=== PATIENT | female | born 1955 | race Caucasian/White ===

== ENCOUNTER 2024-04-06 04:38 | Inpatient (IN) | payer MEDICARE ==
[~2024-04-06] VITALS: Ht 170.2 cm; Wt 96.9 kg
[2024-04-06] VITALS (7 sets, daily range): BP systolic 149–190; BP diastolic 89–99; PULSE 78–85; RESP 17–19; TEMP 97.7–98.2; O2SAT 97
[2024-04-06 05:39] LABS: BASOPHILS # (AUTO) 0.1 (0.0-0.1); BASOPHILS % 0.5 % (0.0-1.0); EOSINOPHILS # (AUTO) 0.1 (0.0-0.4); EOSINOPHILS % 0.5 % (0.0-6.0); HEMATOCRIT 35.5 % (34.2-44.1); HEMOGLOBIN 12.6 g/dL (12.0-16.0); LYMPHOCYTES % 20.8 % (18.0-39.1); MEAN CORPUSCULAR HEMOGLOBIN 32.6 pg (28-32); MEAN CORPUSCULAR HGB CONC 35.5 g/dL (31-35); MEAN CORPUSCULAR VOLUME 91.7 fL (81-99); MONOCYTES # (AUTO) 0.7 (0.2-0.8); MONOCYTES % 7.1 % (4.4-11.3); NEUTROPHILS # (AUTO) 6.6 (2.1-6.9); NEUTROPHILS % 70.4 % (38.7-80.0); PLATELET COUNT 348 x10e3/uL (140-360); RED BLOOD COUNT 3.87 x10e6/uL (3.6-5.1); RED CELL DISTRIBUTION WIDTH 12.4 % (11.7-14.4); WHITE BLOOD COUNT 9.38 x10e3/uL (4.8-10.8)
[2024-04-06 05:59] LABS: ALBUMIN 3.4 g/dL (3.5-5.0); ALBUMIN/GLOBULIN RATIO 1.1 (0.8-2.0); ANION GAP 17.6 mmol/L (8-16); BILIRUBIN,TOTAL 1.7 mg/dL (0.2-1.2); CREATININE, SERUM 0.75 mg/dL (0.57-1.11); TOTAL PROTEIN 6.5 g/dL (6.5-8.1)
[2024-04-06 06:02] LABS: POTASSIUM 2.6 mmol/L (3.5-5.1)
[2024-04-06 06:05] LABS: TROPONIN I 0.014 ng/mL (0-0.300)
[2024-04-06] MEDS: ONDANSETRON HCL INJ 2MG/ML 2ML 2 MG/ML VIAL IV PRN (06:50)
[2024-04-06] MEDS: SODIUM CHLORIDE 0.9% 1000ML 1,000 ML IV STA (06:50)
[2024-04-06] MEDS: Morphine 4mg INJECTION 4 MG/ML INJ IV PRN (06:50)
[2024-04-06] MEDS: POTASSIUM CHLORIDE 20 MEQ TAB CR PO STA (06:50)
[2024-04-06] MEDS: SODIUM CHLORIDE 0.9% 1000ML 1,000 ML IV SCH (07:48)
[2024-04-06 08:26] LABS: AMPHETAMINES SCREEN,URINE NEGATIVE (NEGATIVE); BENZODIAZEPINES SCREEN,URINE NEGATIVE (NEGATIVE); CANNABINOIDS SCREEN,URINE NEGATIVE (NEGATIVE); METHADONE SCREEN, URINE NEGATIVE (NEGATIVE); OPIATES SCREEN,URINE POSITIVE (NEGATIVE); PHENCYCLIDINE SCREEN,URINE NEGATIVE (NEGATIVE)
[2024-04-06 09:54] LABS: BILIRUBIN,URINE NEGATIVE (NEGATIVE); CLARITY,URINE CLEAR (CLEAR); COLOR,URINE YELLOW (YELLOW); GLUCOSE, URINE NEGATIVE (NEGATIVE); KETONES,URINE NEGATIVE (NEGATIVE); LEUKOCYTE ESTERASE ,URINE NEGATIVE (NEGATIVE); NITRITE,URINE NEGATIVE (NEGATIVE); PH,URINE 7 (5 - 7); PROTEIN,URINE DIPSTICK NEGATIVE (NEGATIVE); URINE UROBILINOGEN 0.2 mg/dL (0.2 - 1)
[2024-04-06 10:42] LABS: BACTERIA,URINE FEW /HPF; EPITHELIAL CELLS,URINE FEW /LPF; RBC,URINE 0-5 /HPF (0-5); WBC,URINE (MAN) 0-5 /HPF (0-5)
[2024-04-06] MEDS ORDERED: LISINOPRIL10 MG PO (13:20)
[2024-04-06] MEDS ORDERED: BUPROPION XL150 MG PO (13:20)
[2024-04-06] MEDS ORDERED: TRAZODONE HCL50 MG PO (13:20)
[2024-04-06] MEDS ORDERED: EFFEXOR XR150 MG PO (13:20)
[2024-04-06] MEDS: LISINOPRIL 20 MG TAB PO SCH (13:58)
[2024-04-06] MEDS: POTASSIUM CHLORIDE 10MEQ EA PO ONE (13:59)
[2024-04-06 14:21] LABS: TROPONIN I 0.014 ng/mL (0-0.300)
[2024-04-06 14:35] LABS: ANION GAP 17.9 mmol/L (8-16); CALCIUM 8.7 mg/dL (8.4-10.2); CREATININE, SERUM 0.72 mg/dL (0.57-1.11)
[2024-04-06 14:49] LABS: POTASSIUM 2.9 mmol/L (3.5-5.1)
[2024-04-06] MEDS: POTASSIUM CHLORIDE 20 MEQ TAB CR PO ONE (15:38)
[2024-04-06] MEDS: BUPROPION HCL 100 MG TAB PO SCH (15:38)
[2024-04-06] MEDS: PNEUMOCOCCAL VACCINE POLYVALENT 23 MCG/0.5 ML VIAL IM SCH (15:40)
[2024-04-06] MEDS: INFLUENZA VIRUS VAC SPLIT INJ 0.5 ML SYR IM SCH (15:42)
[2024-04-06] MEDS: NICOTINE 21 MG/EA PATCH TOP PRN (16:01)
[2024-04-06] MEDS: HYDRALAZINE HCL 20 MG/ML VIAL IV PRN (16:03)
[2024-04-06] MEDS: TEMAZEPAM 7.5 MG CAP PO PRN (21:05)
[2024-04-07] VITALS (7 sets, daily range): BP systolic 167–211; BP diastolic 80–104; PULSE 79–100; RESP 17–18; TEMP 97.7–99.1; O2SAT 98–100
[2024-04-07] MEDS: SODIUM CHLORIDE 0.9% 1000ML 1,000 ML IV SCH (03:25)
[2024-04-07] MEDS ORDERED: QUETIAPINE FUM400 MG PO (05:43)
[2024-04-07] MEDS ORDERED: ESCITALOPRAM OXA5 MG PO (05:43)
[2024-04-07] MEDS ORDERED: METHOCARBAMOL500 MG PO (05:43)
[2024-04-07] MEDS ORDERED: GABAPENTIN300 MG PO (05:43)
[2024-04-07] MEDS ORDERED: CLONAZEPAM0.5 MG PO (05:43)
[2024-04-07] MEDS ORDERED: ESIDRIX25 MG PO (05:43)
[2024-04-07] MEDS ORDERED: VENLAFAXINE HC150 MG PO (05:43)
[2024-04-07] MEDS ORDERED: LISINOPRIL20 MG PO (05:43)
[2024-04-07 06:29] LABS: BASOPHILS # (AUTO) 0.1 (0.0-0.1); BASOPHILS % 0.8 % (0.0-1.0); EOSINOPHILS # (AUTO) 0.1 (0.0-0.4); EOSINOPHILS % 1.5 % (0.0-6.0); HEMOGLOBIN 11.6 g/dL (12.0-16.0); LYMPHOCYTES # (AUTO) 1.7 (1.0-3.2); LYMPHOCYTES % 22.9 % (18.0-39.1); MEAN CORPUSCULAR HEMOGLOBIN 32.5 pg (28-32); MEAN CORPUSCULAR HGB CONC 34.1 g/dL (31-35); MEAN CORPUSCULAR VOLUME 95.2 fL (81-99); MONOCYTES # (AUTO) 0.5 (0.2-0.8); MONOCYTES % 6.4 % (4.4-11.3); NEUTROPHILS # (AUTO) 4.9 (2.1-6.9); NEUTROPHILS % 67.8 % (38.7-80.0); PLATELET COUNT 294 x10e3/uL (140-360); RED BLOOD COUNT 3.57 x10e6/uL (3.6-5.1); RED CELL DISTRIBUTION WIDTH 12.8 % (11.7-14.4); WHITE BLOOD COUNT 7.24 x10e3/uL (4.8-10.8)
[2024-04-07 06:49] LABS: ALBUMIN 3.1 g/dL (3.5-5.0); ALBUMIN/GLOBULIN RATIO 1.1 (0.8-2.0); ANION GAP 12.8 mmol/L (8-16); BILIRUBIN,TOTAL 1.5 mg/dL (0.2-1.2); CALCIUM 8.7 mg/dL (8.4-10.2); CREATININE, SERUM 0.64 mg/dL (0.57-1.11); TOTAL PROTEIN 5.9 g/dL (6.5-8.1)
[2024-04-07 06:52] LABS: POTASSIUM 2.8 mmol/L (3.5-5.1)
[2024-04-07 07:06] LABS: TROPONIN I 0.028 ng/mL (0-0.300)
[2024-04-07] MEDS ORDERED: THIAMINE HCL INJ 100 MG/ML 2ML VIAL IV SCH (09:00)
[2024-04-07 13:04] LABS: FOLATE 9.3 ng/mL (7.0-15.4)
[2024-04-07] MEDS: POTASSIUM CHLORIDE 20MEQ/100ML 100 ML IV ONE (14:49)
[2024-04-07] MEDS: AMLODIPINE BESYLATE 5 MG TAB PO SCH (14:49)
[2024-04-07] MEDS: LISINOPRIL 20 MG TAB PO SCH (16:12)
[2024-04-07] MEDS: ACETAMINOPHEN 325 MG TAB PO PRN (20:19)
[2024-04-07] MEDS: CLONIDINE HCL 0.1 MG TAB PO PRN (20:58)
[2024-04-08] VITALS (9 sets, daily range): BP systolic 130–195; BP diastolic 65–94; PULSE 85–99; RESP 17–19; TEMP 97.7–98.6; O2SAT 98–100
[2024-04-08 06:45] LABS: ANION GAP 13.1 mmol/L (8-16); CALCIUM 8.8 mg/dL (8.4-10.2); CREATININE, SERUM 0.68 mg/dL (0.57-1.11)
[2024-04-08 06:48] LABS: POTASSIUM 3.1 mmol/L (3.5-5.1)
[2024-04-08] MEDS: POTASSIUM CHLORIDE 10MEQ EA PO ONE (12:13)
[2024-04-08] MEDS: HYDROXYZINE HCL 25 MG TAB PO PRN (12:53)
[2024-04-08] MEDS: AMLODIPINE BESYLATE 5 MG TAB PO SCH (17:53)
[2024-04-09] VITALS (8 sets, daily range): BP systolic 130–189; BP diastolic 65–100; PULSE 78–92; RESP 18; TEMP 97.8–99; O2SAT 98–100
[2024-04-09 06:21] LABS: ANION GAP 16.4 mmol/L (8-16); CALCIUM 9.4 mg/dL (8.4-10.2); CREATININE, SERUM 0.68 mg/dL (0.57-1.11)
[2024-04-09 06:23] LABS: POTASSIUM 3.4 mmol/L (3.5-5.1)
[2024-04-09] MEDS: NIFEDIPINE CR 30 MG TAB PO SCH (11:39)
[2024-04-09] MEDS: POTASSIUM BICARBONATE/CIT AC 20 MEQ TABLET.EFF PO ONE (14:50)
[2024-04-09] MEDS: CLONAZEPAM 0.5 MG TAB PO SCH (17:43)
[2024-04-09] MEDS: ESCITALOPRAM OXALATE 10 MG TAB PO SCH (20:50)
[2024-04-10 01:06] VITALS: BP 147/83; PULSE 93; RESP 18; TEMP 98.1; O2SAT 98
[2024-04-10 04:32] VITALS: BP 155/84; PULSE 78; RESP 16; TEMP 98; O2SAT 100
[2024-04-10 08:23] VITALS: BP 162/92; PULSE 84; RESP 18; TEMP 98.6; O2SAT 100
[2024-04-10 08:43] VITALS: BP 162/92; PULSE 84
[2024-04-10] MEDS ORDERED: LISINOPRIL20 MG PO (09:28)
[2024-04-10] MEDS ORDERED: NIFEDIPINE ER30 M1 PO (09:28)
[2024-04-10] MEDS ORDERED: HYDROXYZINE HCL25 MG PO (09:28)
[2024-04-10] MEDS ORDERED: CLONIDINE HCL0.1 MG PO (10:29)
== END 2024-04-10 10:55 | disposition home or self-care (01) | DRG 885 ==
LOC: ER 04:42 → ERHOLD 06:03 → MED/SURG3 09:32
PROVIDERS: ADMIT Internal Medicine; ATTEND Internal Medicine
DX: F23 Brief psychotic disorder (principal); G93.41 Metabolic encephalopathy; E87.1 Hypo-osmolality and hyponatremia; R62.7 Adult failure to thrive; I10 Essential (primary) hypertension; E87.6 Hypokalemia; F31.9 Bipolar disorder, unspecified; R53.81 Other malaise; G24.9 Dystonia, unspecified; T43.505A Adverse effect of unspecified antipsychotics and neuroleptics, initial encounter; E66.9 Obesity, unspecified; Z68.33 Body mass index [BMI] 33.0-33.9, adult; Z11.52 Encounter for screening for COVID-19; F17.210 Nicotine dependence, cigarettes, uncomplicated
CPT/HCPCS: 36415; 70450; 70551; 71045; 80048; 80053; 80307; 80320; 81001; 82550; 82607; 82746; 83735; 83880; 84484; 85025; 87086; 90732; 93005; 93306; 95819; 99284; J0360; J2270; J2405; J3410; J3411; J3480; J7030; U0002